=== PATIENT | female | born 1950 | race Caucasian/White ===

== ENCOUNTER 2020-02-25 15:50 | Emergency (ER) | payer MEDICARE ==
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
[2020-02-25 16:57] VITALS: BP 137/76
[2020-02-25] MEDS ORDERED: LIDOCAINE 1% INJ-PF (10 MG/ML) 30 ML SDV INJ ONE (17:01)
--- NOTE | 2020-02-25 17:09 | RADIOLOGY REPORT (SQ) ---
EXAM DESCRIPTION: WRIST LEFT 3 VIEWS IMAGES COMPLETED DATE/TIME: 02/25/2020 4:55 pm REASON FOR STUDY: injury COMPARISON: None. NUMBER OF VIEWS: Three views. TECHNIQUE: AP, lateral, and oblique radiographic images acquired of the left wrist. LIMITATIONS: None. FINDINGS: MINERALIZATION: Normal. BONES: Degenerative changes at the scaphotrapezial joint. No acute fracture or dislocation. Normal alignment. A well-defined ossific density lies adjacent to and separate from the ulnar styloid proc ess may represent a normal anatomic variant. SOFT TISSUES: Chondrocalcinosis in the region of the triangular fibrocartilage. OTHER: No other significant finding. IMPRESSION: 1. Degenerative changes at the wrist. Chondrocalcinosis in the region of the triangula r fibrocartilage. 2. No acute osseous findings. TECHNICAL DOCUMENTATION: JOB ID: [id number] 2010 [employer]- All Rights Reserved Reading location - IP/workstation name: [email or web address]
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
== END 2020-02-25 18:43 | disposition home or self-care (01) ==
LOC: ER 15:50
PROC: 0HQEXZZ Repair Left Lower Arm Skin, External Approach (ICD-10-PCS; principal; 2020-02-25)
DX: S61.512A Laceration without foreign body of left wrist, initial encounter (principal); M79.601 Pain in right arm; M79.89 Other specified soft tissue disorders; W01.110A Fall on same level from slipping, tripping and stumbling with subsequent striking against sharp glass, initial encounter
CPT/HCPCS: 99283